=== PATIENT | male | born 1965 | race Caucasian/White ===

== ENCOUNTER 2019-06-27 16:18 | Inpatient (IN) | payer BC, OTHER ==
[2019-06-27] MEDS ORDERED: KETOROLAC TROMETHAMINE INJ/PF 30 MG/1 ML SDV IV ONE (16:26)
--- NOTE | 2019-06-27 16:28 | ER Document Report ---
ED Medical Screen (RME) - General Chief Complaint: Abdominal Pain Stated Complaint: STOMACH PAIN Time Seen by Provider: 06/27/19 16:20 Mode of Arrival: Wheelchair Information source: Patient Notes: 53-year-old male with history of diabetes thyroid issues and gastric bypass presents emergency department with complaints of severe abdominal pain. Reports his abdomen hurt a little bit yesterday. He reports started hurting again today around 1230. He was able to eat lunch. He reports his stomach feels really tight and radiates to his back. Reports he feels like he would feel much better if he vomited or belched. Patient is holding his stomach looks very uncomfortable. He reports he has a very small bowel movement after he started hurting today. He reports he feels like he is got a belly filler gas. Denies trauma. Denies fever vomiting diarrhea. Denies known COVID exposure. 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 He reports he has been going to work but wearing a mask and is in his office. I have greeted and performed a rapid initial assessment of this patient. A comprehensive ED assessment and evaluation of the patient, analysis of test results and completion of the medical decision making process will be conducted by additional ED providers.
[2019-06-27] MEDS ORDERED: ONDANSETRON HCL INJ/PF 4 MG/2 ML SDV IV ONE (16:33)
--- NOTE | 2019-06-27 16:41 | ER Document Report ---
ED GI/ - General Chief Complaint: Abdominal Pain Stated Complaint: STOMACH PAIN Time Seen by Provider: 06/27/19 16:20 Mode of Arrival: Wheelchair Information source: Patient Notes: 53-year-old male past medical history significant for diabetes, hypothyroidism, peptic ulcer disease presents to the emergency room complaining of sudden onset of severe sharp mid epigastric abdominal pain around 12:30 PM today. States he was driving home from the [employer] when the pain started. Patient states he went home and ate a hotdog and some Doritos without relief. Complains of nausea but no vomiting. No fevers. No urinary symptoms. No medications for symptoms. No ill contacts. No COVID-19 risk factors. No new meds, denies use of alcohol. TRAVEL OUTSIDE OF THE [place] IN LAST 30 DAYS: No - Related Data Allergies/Adverse Reactions: No Known Allergies Allergy (Verified 06/27/19 16:27) Home Medications: dm. thyroid Past Medical History - General Information source: Patient - Social History Smoking Status: Never Smoker Chew tobacco use (# tins/day): No Frequency of alcohol use: None Drug Abuse: None Lives with: Family Family History: DM, Hyperlipidemia, Hypertension, Thyroid Disfunction Patient has homicidal ideation: No Endocrine Medical History: Reports: Hx Diabetes Mellitus Type 2, Hx Hypothyroidism Renal/ Medical History: Reports: Other - Peptic ulcer disease Review of Systems - Review of Systems Constitutional: No symptoms reported Cardiovascular: No symptoms reported Respiratory: No symptoms reported Gastrointestinal: Abdominal pain, Nausea. denies: Vomiting Genitourinary: No symptoms reported -: Yes All other systems reviewed and negative Physical Exam - Vital signs Vitals: Temp 97.4 F 06/27/19 16:20 - General General appearance: Appears well In distress: Moderate - HEENT Head: Normocephalic, Atraumatic Eyes: Normal Pupils: PERRL - Respiratory Respiratory status: No respiratory distress Chest status: Nontender Breath sounds: Normal Chest palpation: Normal - Cardiovascular Rhythm: Regular Heart sounds: Normal auscultation Murmur: No - Abdominal Inspection: Normal Distension: No distension Bowel sounds: Normal Tenderness: Tender - Tenderness on palpation midepigastric, right upper quadrant area. Negative Flor sign.. No: Guarding, Rebound Organomegaly: No organomegaly - Back Back: Normal, Nontender. No: CVA tenderness - Neurological Neuro grossly intact: Yes Cognition: Normal Orientation: AAOx4 Sam Coma Scale Eye Opening: Spontaneous [place] Coma Scale Verbal: Oriented [place] Coma Scale Motor: Obeys Commands Sam Coma Scale Total: 15 Speech: Normal Motor strength normal: LUE, RUE, LLE, RLE Sensory: Normal - Skin Skin Temperature: Warm Skin Moisture: Dry Skin Color: Normal Course - Re-evaluation Re-evalutation: 06/27/19 17:32 Patient is resting comfortably with decreased pain. Reviewed initial labs with patient. Aware of additional diagnostic testing needed. 06/27/19 17:57 Patient with slightly elevated troponin. Aware of need for repeat troponin in 3 hours. Discussed all lab results with patient. Aware of need for CT patient is agreeable with plan of care. 06/27/19 21:02 Reviewed all test results with patient. Repeat troponin within normal limits. No acute EKG changes. Patient continues to complain of pain. Will re-medicate. Aware of need for admission. Patient is agreeable to admission. 06/27/19 21:[address] Byrnes who wants additional diagnostic testing. Patient is aware of the additional testing required. 06/27/19 22:55 Patient aware of need for admission. And that he has been accepted by the hospitalist Dr. Byrnes. Patient denies any heavy alcohol use. 06/27/19 22:58 - Vital Signs Vital signs: Temp Pulse Resp BP Pulse Ox 99.0 F 104 H 15 112/69 91 L 06/27/19 17:44 06/27/19 17:44 06/27/19 22:01 06/27/19 22:00 06/27/19 22:01 - Laboratory Result Diagrams: 06/27/19 16:38 06/27/19 16:38 Laboratory results interpreted by me: 06/27/19 06/27/19 06/27/19 16:38 16:38 16:38 Seg Neutrophils % 79.4 H Glucose 212 H POC Glucose 238 H Total Bilirubin 1.5 H Direct Bilirubin 0.8 H AST 406 H ALT 212 H Alkaline Phosphatase 127 H Amylase Lipase 36674.0 H Urine Protein Urine Glucose (UA) Urine Ketones Urine Urobilinogen Urine Ascorbic Acid 06/27/19 06/27/19 16:38 16:55 Seg Neutrophils % Glucose POC Glucose Total Bilirubin Direct Bilirubin AST ALT Alkaline Phosphatase Amylase 2214 H Lipase Urine Protein 30 H Urine Glucose (UA) >=500 H Urine Ketones TRACE H Urine Urobilinogen 4.0 H Urine Ascorbic Acid 20 H - Diagnostic Test Radiology reviewed: Reports reviewed - EKG Interpretation by Me Additional EKG results interpreted by me: 06/27/19 17:58 EKG was interpreted by ER physician Dr. Clement 06/27/19 20:35 EKG was interpreted by ER physician Dr. Clement - Consults Dr Fitz Trejo consulted: 21:30 - Would like right upper quadrant ultrasound to evaluate the common bile duct. Reason for consultation: 06/27/19 21:32 Admission, would like ultrasound right upper quadrant to assess common bile duct . Dr. Fitz Trejo consulted: 22:49 Reason for consultation: 06/27/19 22:49 Admission for acute pancreatitis reviewed ultrasound results as requested Consulted provider: will see as inpatient Discharge - Discharge Clinical Impression: Acute pancreatitis Qualifiers: Pancreatitis type: unspecified pancreatitis type Acute pancreatitis complication: unspecified Qualified Code(s): K85.90 - Acute pancreatitis without necrosis or infection, unspecified Disposition: ADMITTED INPATIENT Admitting Provider: Fitz (Hospitalist) Unit Admitted: Telemetry
[2019-06-27 16:55] LABS: ABSOLUTE LYMPHOCYTES (AUTO) 1.5 10^3/uL (0.5-4.7); ABSOLUTE MONOCYTES (AUTO) 0.3 10^3/uL (0.1-1.4); ABSOLUTE NEUT (AUTO) 7.2 10^3/uL (1.7-8.2); BASOPHILS % (AUTO) 0.3 % (0-2); EOSINOPHILS % (AUTO) 0.4 % (0-6); HEMATOCRIT 45.4 % (37.9-51.0); HEMOGLOBIN 15.9 g/dL (13.5-17.0); LYMPHOCYTES % (AUTO) 16.8 % (13-45); MEAN CORPUSCULAR HEMOGLOBIN 30.3 pg (27.0-33.4); MEAN CORPUSCULAR VOLUME 87 fl (80-97); MONOCYTES % (AUTO) 3.1 % (3-13); PLATELET COUNT 217 10^3/uL (150-450); RED BLOOD COUNT 5.24 10^6/uL (4.35-5.55); RED CELL DISTRIBUTION WIDTH 13.3 % (11.5-14.0); SEGMENTED NEUTROPHILS % (AUTO) 79.4 % (42-78); TOTAL CELLS COUNTED % (AUTO) 100 %
[2019-06-27 17:07] LABS: ALBUMIN 4.8 g/dL (3.5-5.0); ALKALINE PHOSPHATASE 127 U/L (38-126); ANION GAP 12 (5-19); ASPARTATE AMINO TRANSFERASE 406 U/L (17-59); BILIRUBIN,DIRECT 0.8 mg/dL (0.0-0.4); BILIRUBIN,TOTAL 1.5 mg/dL (0.2-1.3); BLOOD UREA NITROGEN 12 mg/dL (7-20); CALCIUM 9.9 mg/dL (8.4-10.2); CARBON DIOXIDE 24 mmol/L (22-30); CHLORIDE 102 mmol/L (98-107); GLUCOSE 212 mg/dL (75-110); POTASSIUM 3.9 mmol/L (3.6-5.0); TOTAL PROTEIN 7.7 g/dL (6.3-8.2)
[2019-06-27 17:10] LABS: APPEARANCE,URINE CLEAR; BILIRUBIN,URINE NEGATIVE (NEGATIVE); COLOR,URINE YELLOW; GLUCOSE, URINE >=500 mg/dL (NEGATIVE); KETONES,URINE TRACE mg/dL (NEGATIVE); LEUKOCYTE ESTERASE,URINE NEGATIVE (NEGATIVE); NITRITE,URINE NEGATIVE (NEGATIVE); PROTEIN,URINE 30 mg/dL (NEGATIVE); URINE SPECIFIC GRAVITY 1.011
--- NOTE | 2019-06-27 17:25 | RADIOLOGY REPORT (SQ) ---
EXAM DESCRIPTION: ACUTE ABDOMEN SERIES IMAGES COMPLETED DATE/TIME: 06/27/2019 5:06 pm REASON FOR STUDY: abd pain COMPARISON: None. NUMBER OF VIEWS: Three views. TECHNIQUE: Frontal chest, supine abdomen and upright/decubitus abdomen radiographic images acquired. LIMITATIONS: None. FINDINGS: CHEST: Lungs clear of infiltrates. FREE AIR: None. No abnormal gas collections. BOWEL GAS PATTERN: Nonobstructive pattern. No dilated loops or air fluid levels. CALCIFICATIONS: No suspicious calcifications. HARDWARE: None in the abdomen. SOFT TISSUES: No gross mass or suggestion of organomegaly. BONES: No acute fracture. No worrisome bone lesions. OTHER: No other significant finding. IMPRESSION: NO RADIOGRAPHIC EVIDENCE FOR ACUTE ABDOMINAL DISEASE. TECHNICAL DOCUMENTATION: JOB ID: [id number] 2010 [employer]- All Rights Reserved Reading location - IP/workstation name: [email or web address]
[2019-06-27] MEDS ORDERED: HYDROMORPHONE HCL INJ/PF 2 MG/ML AMPULE IV ONE ×2 (18:13→20:50)
[2019-06-27] MEDS ORDERED: RINGERS SOLUTION,LACTATED 1,000 ML IV ONE (18:34)
--- NOTE | 2019-06-27 20:19 | EKG REPORT ---
SEVERITY:- OTHERWISE NORMAL ECG - SINUS RHYTHM BORDERLINE LEFT AXIS DEVIATION : Confirmed by: Miky Sarmiento MD 27-Jun-2019 20:19:06
--- NOTE | 2019-06-27 20:45 | RADIOLOGY REPORT (SQ) ---
EXAM DESCRIPTION: CT ABDOMEN PELVIS WITH IV CONTRAST COMPLETED DATE/TME: 06/27/2019 00:00 CLINICAL HISTORY: 53 years, Male, abdominal pain COMPARISON: None. TECHNIQUE: Enhanced CT of the abdomen/pelvis was performed. Images were obtained after the uneventful administration of 100 mL of Omnipaque 350 intravenous contrast. Images stored on PACS. All CT scanners at this facility use dose modulation, iterative reconstruction, and/or weight based dosing when appropriate to reduce radiation dose to as low as reasonably achievable (ALARA). [facility]: Dose Right [facility]: CareDose [facility]: Dose Right [facility]: Teradose 4D [facility]: Knowthena LIMITATIONS: None. FINDINGS: Limited evaluation of the lower chest reveals bands of opacity about both lung bases, indicating areas of atelectasis and/or scar. Calcifications are evident about the coronary vessels. There is a small hiatal hernia. The liver is diffusely low in attenuation relative to the spleen. No focal liver lesions are appreciated. Assessment of the spleen reveals a wedge-shaped area of hypodensity about its anterior aspect on image 27 of series 3. Remainder of the spleen appears normal. Mild inflammatory stranding surrounds the pancreatic parenchyma, especially the pancreatic tail and pancreatic head. Otherwise, the pancreas appears to enhance normally. Gallbladder is distended, containing heterogeneously dense material internally, suggestive of sludge. No significant gallbladder wall thickening or pericholecystic inflammation. Both adrenal glands appear normal. A 2 mm calculus is noted about the lower pole of the right kidney. Both kidneys otherwise enhance symmetrically. No hydronephrosis or hydroureter. The urinary bladder is well distended and shows no suspicious finding. Scattered colonic diverticula are evident. No adjacent inflammation. Appendix is normal. No evidence of bowel obstruction. Postsurgical changes are suspected about the stomach. Vascular structures appeared opacify with contrast normally. Only minimal calcifications are noted about the abdominal aorta and proximal iliac vessels. No lymphadenopathy or drainable fluid collections are appreciated. Bone windows show no destructive osseous lesions. IMPRESSION: Findings suggest acute, uncomplicated pancreatitis. Recommend confirmation with serum lipase levels. Wedge-shaped area of hypodensity about the anterior aspect of the spleen. While this could be related to the phase of contrast administration, a splenic infarcts could technically have this appearance. Heterogenous material within the gallbladder lumen, suspicious for sludge. Suspect hepatic steatosis. Nonobstructive right nephrolithiasis. TECHNICAL DOCUMENTATION: Quality ID # 436: Final reports with documentation of one or more dose reduction techniques (e.g., Automated exposure control, adjustment of the mA and/or kV according to patient size, use of iterative reconstruction technique) copyright 2011 [employer]- All Rights Reserved
--- NOTE | 2019-06-27 22:22 | RADIOLOGY REPORT (SQ) ---
EXAM DESCRIPTION: US ABDOMEN LIMITED COMPLETED DATE/TME: 06/27/2019 21:28 CLINICAL HISTORY: 53 years, Male, ruq pain, pancreatitis, assess common bile duct COMPARISON: None. TECHNIQUE: LIMITATIONS: None. FINDINGS: The gallbladder is filled with sludge. No gallstones. The nuclear medicine pet ct technologist reported a negative sonographic Flor sign. No evidence of biliary tree dilatation. The common bile duct measures 4.3 mm. The liver is hyperechogenic, compatible with fatty infiltration. The right kidney is unremarkable. The pancreas was obscured by bowel gas. IMPRESSION: The gallbladder is filled with sludge. Fatty liver. copyright 2010 [employer]- All Rights Reserved
[2019-06-27] MEDS ORDERED: MORPHINE SULFATE 10 MG/ML INJ IV PRN (22:48)
[2019-06-27] MEDS ORDERED: ACETAMINOPHEN 325 MG TABLET PO PRN (22:48)
[2019-06-27] MEDS ORDERED: HYDRALAZINE HCL INJ/PF 20 MG/1 ML SDV IV PRN (22:48)
[2019-06-27] MEDS ORDERED: ONDANSETRON HCL INJ/PF 4 MG/2 ML SDV IV PRN (22:49)
[2019-06-27] MEDS ORDERED: IPRATROPIUM/ALBUTEROL 0.5-2.5 MG/3 ML AMPUL NEB PRN (22:49)
[2019-06-27] MEDS: NORMAL SALINE 1000 ML 1,000 ML IV PRN (23:34)
[2019-06-28] MEDS: NORMAL SALINE 1000 ML 1,000 ML IV PRN ×2 (03:43→08:20)
--- NOTE | 2019-06-28 03:51 | PDOC H&P ---
History of Present Illness Admission Date/PCP: 06/27/19 22:53 FLOR MATHIAS MD Patient complains of: Abdominal pain History of Present Illness: CIPRIANO ADAM is a 53 year old male with a past medical history of hypothyroidism, peptic ulcer disease, hypertension and diabetes. He presents with 24 hours of epigastric pain radiating to the back associated with nausea without vomiting. He denies fever chills shortness of breath he admits to recent initiation of Ozempic which is known to have a frequent adverse reaction of pancreatitis. In the emergency department he is found to have mildly elevated bilirubin but a markedly elevated lipase of 45,000, ultrasound is negative for stone or ductal dilatation. He received symptomatic management and referred to the hospitalist for admission. He denies previous episode, alcohol or viral prodrome. Past Medical History Endocrine Medical History: Reports: Diabetes Mellitus Type 2, Hypothyroidism Renal/ Medical History: Reports: Other - Peptic ulcer disease Psychiatric Medical History: Denies: Depression Past Surgical History Past Surgical History: Reports: Gastric Bypass Surgery, Orthopedic Surgery - rt knee, lt shoulder Social History Information Source: Patient Lives with: Family Smoking Status: Never Smoker Electronic Cigarette use?: No Frequency of Alcohol Use: None Hx Recreational Drug Use: No Drugs: None Hx Prescription Drug Abuse: No - Advance Directive Resuscitation Status: Full Code Family History Family History: DM, Hyperlipidemia, Hypertension, Thyroid Disfunction Parental Family History Reviewed: No Children Family History Reviewed: No Sibling(s) Family History Reviewed.: No Medication/Allergy Home Medications: Levothyroxine Sodium [Synthroid 0.112 mg Tablet] 2 tab PO DAILY 06/28/19 Metformin HCl 2 tab PO BID 06/28/19 Omeprazole 1 tab PO QAM 06/28/19 Semaglutide [Ozempic] 0.5 mg SUBCUT ASDIR PRN 06/28/19 Allergies/Adverse Reactions: No Known Allergies Allergy (Verified 06/27/19 16:27) Review of Systems Constitutional: ABSENT: chills, fever(s), headache(s), weight gain, weight loss Eyes: ABSENT: visual disturbances Ears: ABSENT: hearing changes Cardiovascular: ABSENT: chest pain, dyspnea on exertion, edema, orthropnea, palpitations Respiratory: ABSENT: cough, hemoptysis Gastrointestinal: ABSENT: abdominal pain, constipation, diarrhea, hematemesis, hematochezia, nausea, vomiting Genitourinary: ABSENT: dysuria, hematuria Musculoskeletal: ABSENT: joint swelling Integumentary: ABSENT: rash, wounds Neurological: ABSENT: abnormal gait, abnormal speech, confusion, dizziness, focal weakness, syncope Psychiatric: ABSENT: anxiety, depression, homidical ideation, suicidal ideation Endocrine: ABSENT: cold intolerance, heat intolerance, polydipsia, polyuria Hematologic/Lymphatic: ABSENT: easy bleeding, easy bruising Physical Exam Vital Signs: Temp Pulse Resp BP Pulse Ox 98.3 F 91 18 106/66 94 06/28/19 00:03 06/28/19 02:00 06/28/19 00:03 06/28/19 00:03 06/28/19 00:03 Intake & Output 06/26/19 06/27/19 06/28/19 11:59 11:59 11:59 Intake Total 1999 Balance 1999 Weight 111.3 kg General appearance: PRESENT: mild distress, well-developed, well-nourished Head exam: PRESENT: atraumatic, normocephalic Eye exam: PRESENT: conjunctiva pink, EOMI, PERRLA. ABSENT: scleral icterus Ear exam: PRESENT: normal external ear exam Mouth exam: PRESENT: moist, tongue midline Neck exam: ABSENT: carotid bruit, JVD, lymphadenopathy, thyromegaly Respiratory exam: PRESENT: clear to auscultation andrés. ABSENT: rales, rhonchi, wheezes Cardiovascular exam: PRESENT: RRR. ABSENT: diastolic murmur, rubs, systolic murmur Pulses: PRESENT: normal dorsalis pedis pul Vascular exam: PRESENT: normal capillary refill GI/Abdominal exam: PRESENT: hyperactive bowel sounds, normal bowel sounds, soft, tenderness - Epigastric. ABSENT: distended, guarding, mass, organolmegaly, rebound Rectal exam: PRESENT: deferred Extremities exam: PRESENT: full ROM. ABSENT: calf tenderness, clubbing, pedal edema Neurological exam: PRESENT: alert, awake, oriented to person, oriented to place, oriented to time, oriented to situation, CN II-XII grossly intact. ABSENT: motor sensory deficit Psychiatric exam: PRESENT: appropriate affect, normal mood. ABSENT: homicidal ideation, suicidal ideation Skin exam: PRESENT: dry, intact, warm. ABSENT: cyanosis, rash Results Laboratory Results: 06/27/19 16:38 06/27/19 16:38 06/27/19 06/27/19 06/27/19 16:38 16:38 16:38 WBC 9.0 RBC 5.24 Hgb 15.9 Hct 45.4 MCV 87 MCH 30.3 MCHC 35.0 RDW 13.3 Plt Count 217 Seg Neutrophils % 79.4 H Sodium 137.6 Potassium 3.9 Chloride 102 Carbon Dioxide 24 Anion Gap 12 BUN 12 Creatinine 0.64 Est GFR ( Amer) > 60 Glucose 212 H Calcium 9.9 Total Bilirubin 1.5 H AST 406 H Alkaline Phosphatase 127 H Total Protein 7.7 Albumin 4.8 Amylase 2214 H Lipase 25666.0 H Urine Color Urine Appearance Urine pH Ur Specific [place] Urine Protein Urine Glucose (UA) Urine Ketones Urine Blood Urine Nitrite Ur Leukocyte Esterase Urine WBC (Auto) Urine RBC (Auto) 06/27/19 16:55 WBC RBC Hgb Hct MCV MCH MCHC RDW Plt Count Seg Neutrophils % Sodium Potassium Chloride Carbon Dioxide Anion Gap BUN Creatinine Est GFR ( Amer) Glucose Calcium Total Bilirubin AST Alkaline Phosphatase Total Protein Albumin Amylase Lipase Urine Color YELLOW Urine Appearance CLEAR Urine pH 6.0 Ur Specific [place] 1.011 Urine Protein 30 H Urine Glucose (UA) >=500 H Urine Ketones TRACE H Urine Blood NEGATIVE Urine Nitrite NEGATIVE Ur Leukocyte Esterase NEGATIVE Urine WBC (Auto) 0 Urine RBC (Auto) 1 06/27/19 06/27/19 06/27/19 16:38 16:38 16:38 Creatine Kinase 110 CK-MB (CK-2) 0.88 Troponin I 0.014 06/27/19 20:39 Creatine Kinase CK-MB (CK-2) Troponin I < 0.012 Impressions: Abdomen/Pelvis CT 06/27/19 00:00 IMPRESSION: Findings suggest acute, uncomplicated pancreatitis. Recommend confirmation with serum lipase levels. Wedge-shaped area of hypodensity about the anterior aspect of the spleen. While this could be related to the phase of contrast administration, a splenic infarcts could technically have this appearance. Heterogenous material within the gallbladder lumen, suspicious for sludge. Suspect hepatic steatosis. Nonobstructive right nephrolithiasis. TECHNICAL DOCUMENTATION: Quality ID # 436: Final reports with documentation of one or more dose reduction techniques (e.g., Automated exposure control, adjustment of the mA and/or kV according to patient size, use of iterative reconstruction technique) copyright 2011 [employer]- All Rights Reserved Acute Abdomen Series 06/27/19 16:26 IMPRESSION: NO RADIOGRAPHIC EVIDENCE FOR ACUTE ABDOMINAL DISEASE. Abdomen Ultrasound 06/27/19 21:28 IMPRESSION: The gallbladder is filled with sludge. Fatty liver. copyright 2010 [employer]- All Rights Reserved Assessment and Plan - Diagnosis (1) Acute pancreatitis Qualifiers: Pancreatitis type: unspecified pancreatitis type Acute pancreatitis complication: unspecified Qualified Code(s): K85.90 - Acute pancreatitis without necrosis or infection, unspecified Is this a current diagnosis for this admission?: Yes Plan: Likely secondary to Ozempic, discontinued, Bowel rest, hydration, symptomatic management, follow-up chemistry. Trial p.o. clear liquid diet with no longer requesting narcotic analgesia. Advance diet as tolerated. (2) Abdominal pain Is this a current diagnosis for this admission?: Yes Plan: Secondary #1, NSAIDs as needed (3) Diabetes Is this a current diagnosis for this admission?: Yes Plan: Ozempic discontinued, Humalog sliding scale ordered. - Time Time Spent with patient: 25-34 minutes
[2019-06-28 05:49] LABS: HEMATOCRIT 37.8 % (37.9-51.0); MEAN CORPUSCULAR HEMOGLOBIN 30.7 pg (27.0-33.4); MEAN CORPUSCULAR HGB CONC 35.5 g/dL (32.0-36.0); MEAN CORPUSCULAR VOLUME 87 fl (80-97); PLATELET COUNT 171 10^3/uL (150-450); RED BLOOD COUNT 4.36 10^6/uL (4.35-5.55); RED CELL DISTRIBUTION WIDTH 13.2 % (11.5-14.0); WHITE BLOOD COUNT 12.7 10^3/uL (4.0-10.5)
[2019-06-28 05:54] LABS: HEMOGLOBIN 13.4 g/dL (13.5-17.0)
[2019-06-28] MEDS: HEPARIN SOD (PORCINE) 5,000 UNIT/ML 1 ML VIAL SUBCUT SCH ×3 (05:55→21:00)
[2019-06-28 06:02] LABS: ALBUMIN 3.5 g/dL (3.5-5.0); ALKALINE PHOSPHATASE 105 U/L (38-126); ANION GAP 9 (5-19); ASPARTATE AMINO TRANSFERASE 573 U/L (17-59); BILIRUBIN,DIRECT 3.3 mg/dL (0.0-0.4); BLOOD UREA NITROGEN 15 mg/dL (7-20); CALCIUM 8.4 mg/dL (8.4-10.2); CARBON DIOXIDE 25 mmol/L (22-30); CHLORIDE 102 mmol/L (98-107); GLUCOSE 238 mg/dL (75-110); POTASSIUM 4.2 mmol/L (3.6-5.0); TOTAL PROTEIN 6.1 g/dL (6.3-8.2)
[2019-06-28 06:08] LABS: ABSOLUTE LYMPHOCYTES# (MANUAL) 0.4 10^3/uL (0.5-4.7); ABSOLUTE MONOCYTES # (MANUAL) 0.6 10^3/uL (0.1-1.4); BAND NEUTROPHILS % (MANUAL) 6 % (3-5); BASOPHILS % (MANUAL) 0 % (0-2); EOSINOPHILS % (MANUAL) 0 % (0-6); LYMPHOCYTES % (MANUAL) 3 % (13-45); MONOCYTES % (MANUAL) 5 % (3-13); SEGMENTED NEUTROPHILS % (MAN) 86 % (42-78); TOTAL CELLS COUNTED 100
[2019-06-28 06:09] LABS: PLATELET COMMENT ADEQUATE; RBC MORPHOLOGY COMMENT NORMO-CYTIC/CHROMIC
[2019-06-28 06:15] LABS: BILIRUBIN,TOTAL 4.9 mg/dL (0.2-1.3)
--- NOTE | 2019-06-28 06:18 | EKG REPORT ---
SEVERITY:- OTHERWISE NORMAL ECG - SINUS TACHYCARDIA BORDERLINE LEFT AXIS DEVIATION : Confirmed by: Miky Sarmiento MD 28-Jun-2019 06:17:56
[2019-06-28] MEDS ORDERED: ONDANSETRON HCL INJ/PF 4 MG/2 ML SDV IV PRN (07:30)
[2019-06-28] MEDS: KETOROLAC TROMETHAMINE INJ/PF 30 MG/1 ML SDV IV PRN ×2 (07:57→22:02)
[2019-06-28] MEDS ORDERED: RINGERS SOLUTION,LACTATED 1,000 ML IV PRN (08:51)
[2019-06-28] MEDS ORDERED: DEXTROSE 50%-WATER 25 GM/50 ML DISP.SYRIN IV PRN ×2 (08:53)
[2019-06-28] MEDS ORDERED: DEXTROSE 40% GEL 15 GM TUBE PO PRN ×2 (08:53)
[2019-06-28] MEDS ORDERED: GLUCAGON,HUMAN RECOMB 1 MG INJ IM PRN (08:53)
[2019-06-28] MEDS: PANTOPRAZOLE SODIUM 40 MG VIAL IV SCH (09:19)
[2019-06-28] MEDS ORDERED: FAMOTIDINE INJ/PF 20 MG/2 ML SDV IV SCH (10:00)
[2019-06-28] MEDS: LEVOTHYROXINE SODIUM 0.112 MG TABLET PO SCH (10:04)
[2019-06-28] MEDS: DEXTROSE 5%-LACTATED RINGERS 1,000 ML IV PRN ×3 (11:47→22:03)
[2019-06-28] MEDS: INSULIN LISPRO 100 UNIT/ML 3 ML VIAL SUBCUT SCH ×2 (11:53→17:53)
--- NOTE | 2019-06-28 16:37 | PDOC PROGRESS REPORT ---
Subjective Progress Note for:: 06/28/19 Subjective:: Patient feels better today. Still having abdominal pain. Denies any fever or chills. Denies any problems with bowel movements. Last bowel movement was yesterday. Reason For Visit: ACUTE PANCREATITIS Physical Exam Vital Signs: Temp Pulse Resp BP Pulse Ox 98.8 F 93 14 116/53 L 95 06/28/19 08:21 06/28/19 10:25 06/28/19 10:25 06/28/19 08:21 06/28/19 08:21 Intake & Output 06/27/19 06/28/19 06/29/19 06:59 06:59 06:59 Intake Total 1999 185 Balance 1999 1857 Weight 111.3 kg General appearance: PRESENT: no acute distress, cooperative Neck exam: ABSENT: JVD Respiratory exam: PRESENT: clear to auscultation andrés, unlabored. ABSENT: tachypnea, wheezes Cardiovascular exam: PRESENT: RRR, +S1, +S2. ABSENT: tachycardia GI/Abdominal exam: PRESENT: soft. ABSENT: rebound, rigid, tenderness Neurological exam: PRESENT: alert, awake, oriented to person, oriented to place, oriented to time Results Laboratory Results: 06/28/19 04:58 06/28/19 04:58 06/27/19 06/27/19 06/27/19 16:38 16:38 16:38 WBC 9.0 RBC 5.24 Hgb 15.9 Hct 45.4 MCV 87 MCH 30.3 MCHC 35.0 RDW 13.3 Plt Count 217 Seg Neutrophils % 79.4 H Sodium 137.6 Potassium 3.9 Chloride 102 Carbon Dioxide 24 Anion Gap 12 BUN 12 Creatinine 0.64 Est GFR ( Amer) > 60 Glucose 212 H Calcium 9.9 Total Bilirubin 1.5 H AST 406 H Alkaline Phosphatase 127 H Total Protein 7.7 Albumin 4.8 Amylase 2214 H Lipase 47663.0 H Urine Color Urine Appearance Urine pH Ur Specific [place] Urine Protein Urine Glucose (UA) Urine Ketones Urine Blood Urine Nitrite Ur Leukocyte Esterase Urine WBC (Auto) Urine RBC (Auto) 06/27/19 06/28/19 06/28/19 16:55 04:58 04:58 WBC 12.7 H RBC 4.36 Hgb 13.4 L D Hct 37.8 L MCV 87 MCH 30.7 MCHC 35.5 RDW 13.2 Plt Count 171 Seg Neutrophils % Not Reportable Sodium 136.3 L Potassium 4.2 Chloride 102 Carbon Dioxide 25 Anion Gap 9 BUN 15 Creatinine 0.77 Est GFR ( Amer) > 60 Glucose 238 H Calcium 8.4 Total Bilirubin 4.9 H D AST 573 H Alkaline Phosphatase 105 Total Protein 6.1 L Albumin 3.5 Amylase Lipase 37105.9 H Urine Color YELLOW Urine Appearance CLEAR Urine pH 6.0 Ur Specific [place] 1.011 Urine Protein 30 H Urine Glucose (UA) >=500 H Urine Ketones TRACE H Urine Blood NEGATIVE Urine Nitrite NEGATIVE Ur Leukocyte Esterase NEGATIVE Urine WBC (Auto) 0 Urine RBC (Auto) 1 06/27/19 06/27/19 06/27/19 16:38 16:38 16:38 Creatine Kinase 110 CK-MB (CK-2) 0.88 Troponin I 0.014 06/27/19 20:39 Creatine Kinase CK-MB (CK-2) Troponin I < 0.012 Impressions: Abdomen/Pelvis CT 06/27/19 00:00 IMPRESSION: Findings suggest acute, uncomplicated pancreatitis. Recommend confirmation with serum lipase levels. Wedge-shaped area of hypodensity about the anterior aspect of the spleen. While this could be related to the phase of contrast administration, a splenic infarcts could technically have this appearance. Heterogenous material within the gallbladder lumen, suspicious for sludge. Suspect hepatic steatosis. Nonobstructive right nephrolithiasis. TECHNICAL DOCUMENTATION: Quality ID # 436: Final reports with documentation of one or more dose reduction techniques (e.g., Automated exposure control, adjustment of the mA and/or kV according to patient size, use of iterative reconstruction technique) copyright 2011 [employer]- All Rights Reserved Acute Abdomen Series 06/27/19 16:26 IMPRESSION: NO RADIOGRAPHIC EVIDENCE FOR ACUTE ABDOMINAL DISEASE. Abdomen Ultrasound 06/27/19 21:28 IMPRESSION: The gallbladder is filled with sludge. Fatty liver. copyright 2011 [employer]- All Rights Reserved Assessment and Plan - Diagnosis (1) Acute pancreatitis Qualifiers: Pancreatitis type: drug induced Acute pancreatitis complication: no in fection or necrosis Qualified Code(s): K85.30 - Drug induced acute pancre atitis without necrosis or infection Is this a current diagnosis for this admission?: Yes Plan: Likely secondary to Ozempic which will be discontinued. Lipase of 45,000 on admission. Patient looks to be doing better. Continue bowel rest for today and hopefully we can attempt starting on liquid diet tomorrow. Abdominal ultrasound showing no evidence of biliary tract obstruction Place on D5 lactated Ringer's at 200 cc/h. Morphine and Toradol IV as needed, antiemetics. GI prophylaxis. (2) Hepatocellular injury Is this a current diagnosis for this admission?: Yes Plan: Significantly elevated transaminases and bilirubin. No biliary tract obstruction on ultrasound but abdominal ultrasound does show evidence of fatty liver disease. Will check Tylenol level and hepatitis viral serology. Trend liver enzymes. (3) Diabetes Is this a current diagnosis for this admission?: Yes Plan: Ozempic discontinued, Humalog sliding scale ordered. - Time Time Spent with patient: Less than 15 minutes
[2019-06-29] MEDS: INSULIN LISPRO 100 UNIT/ML 3 ML VIAL SUBCUT SCH ×4 (01:28→19:03)
[2019-06-29] MEDS: HEPARIN SOD (PORCINE) 5,000 UNIT/ML 1 ML VIAL SUBCUT SCH ×3 (06:33→21:16)
[2019-06-29] MEDS: LEVOTHYROXINE SODIUM 0.112 MG TABLET PO SCH (06:35)
[2019-06-29 06:39] LABS: ALKALINE PHOSPHATASE 104 U/L (38-126); ANION GAP 7 (5-19); ASPARTATE AMINO TRANSFERASE 174 U/L (17-59); BILIRUBIN,DIRECT 3.8 mg/dL (0.0-0.4); BLOOD UREA NITROGEN 13 mg/dL (7-20); CALCIUM 8.1 mg/dL (8.4-10.2); CARBON DIOXIDE 24 mmol/L (22-30); CHLORIDE 105 mmol/L (98-107); GLUCOSE 190 mg/dL (75-110); POTASSIUM 3.2 mmol/L (3.6-5.0); TOTAL PROTEIN 5.3 g/dL (6.3-8.2)
[2019-06-29] MEDS: PANTOPRAZOLE SODIUM 40 MG VIAL IV SCH (09:35)
--- NOTE | 2019-06-29 14:52 | PDOC PROGRESS REPORT ---
Subjective Progress Note for:: 06/29/19 Subjective:: Patient says he feels better, abdominal pain improved Reason For Visit: ACUTE PANCREATITIS Physical Exam Vital Signs: Temp Pulse Resp BP Pulse Ox 99.0 F 99 18 132/72 H 96 06/29/19 08:01 06/29/19 14:09 06/29/19 14:09 06/29/19 08:01 06/29/19 14:09 Intake & Output 06/28/19 06/29/19 06/30/19 06:59 06:59 06:59 Intake Total 1999 3711 Output Total 850 Balance 1999 286 Weight 111.3 kg 112.2 kg General appearance: PRESENT: no acute distress, well-developed, well-nourished Head exam: PRESENT: atraumatic, normocephalic Eye exam: PRESENT: conjunctiva pink, EOMI, PERRLA. ABSENT: scleral icterus Ear exam: PRESENT: normal external ear exam Mouth exam: PRESENT: moist, tongue midline Neck exam: ABSENT: carotid bruit, JVD, lymphadenopathy, thyromegaly Respiratory exam: PRESENT: clear to auscultation andrés. ABSENT: rales, rhonchi, wheezes Cardiovascular exam: PRESENT: RRR, +S1, +S2. ABSENT: diastolic murmur, rubs, systolic murmur Pulses: PRESENT: normal dorsalis pedis pul Vascular exam: PRESENT: normal capillary refill GI/Abdominal exam: PRESENT: normal bowel sounds, soft. ABSENT: distended, guarding, mass, organolmegaly, rebound, tenderness Rectal exam: PRESENT: deferred Extremities exam: PRESENT: full ROM. ABSENT: calf tenderness, clubbing, pedal edema Neurological exam: PRESENT: alert, awake, oriented to person, oriented to place, oriented to time, oriented to situation, CN II-XII grossly intact. ABSENT: motor sensory deficit Psychiatric exam: PRESENT: appropriate affect, normal mood. ABSENT: homicidal ideation, suicidal ideation Skin exam: PRESENT: dry, intact, warm. ABSENT: cyanosis, rash Results Laboratory Results: 06/28/19 04:58 06/29/19 05:28 06/29/19 06/29/19 05:28 05:28 Sodium 135.9 L Potassium 3.2 L Chloride 105 Carbon Dioxide 24 Anion Gap 7 BUN 13 Creatinine 0.60 Est GFR ( Amer) > 60 Glucose 190 H Calcium 8.1 L Total Bilirubin 5.0 H AST 174 H Alkaline Phosphatase 104 Total Protein 5.3 L Albumin 3.0 L Lipase 2050.7 H 06/27/19 06/27/19 06/27/19 16:38 16:38 16:38 Creatine Kinase 110 CK-MB (CK-2) 0.88 Troponin I 0.014 06/27/19 20:39 Creatine Kinase CK-MB (CK-2) Troponin I < 0.012 Impressions: Abdomen/Pelvis CT 06/27/19 00:00 IMPRESSION: Findings suggest acute, uncomplicated pancreatitis. Recommend confirmation with serum lipase levels. Wedge-shaped area of hypodensity about the anterior aspect of the spleen. While this could be related to the phase of contrast administration, a splenic infarcts could technically have this appearance. Heterogenous material within the gallbladder lumen, suspicious for sludge. Suspect hepatic steatosis. Nonobstructive right nephrolithiasis. TECHNICAL DOCUMENTATION: Quality ID # 436: Final reports with documentation of one or more dose reduction techniques (e.g., Automated exposure control, adjustment of the mA and/or kV according to patient size, use of iterative reconstruction technique) copyright 2011 [employer]- All Rights Reserved Acute Abdomen Series 06/27/19 16:26 IMPRESSION: NO RADIOGRAPHIC EVIDENCE FOR ACUTE ABDOMINAL DISEASE. Abdomen Ultrasound 06/27/19 21:28 IMPRESSION: The gallbladder is filled with sludge. Fatty liver. copyright 2011 [employer]- All Rights Reserved Assessment and Plan - Diagnosis (1) Abdominal pain Is this a current diagnosis for this admission?: Yes (2) Acute pancreatitis Qualifiers: Pancreatitis type: drug induced Acute pancreatitis complication: no infection or necrosis Qualified Code(s): K85.30 - Drug induced acute pancreatitis without necrosis or infection Is this a current diagnosis for this admission?: Yes Plan: Likely secondary to Ozempic which will be discontinued. Lipase of 45,000 on admission. Patient looks to be doing better. Continue bowel rest for today and hopefully we can attempt starting on liquid diet tomorrow. Abdominal ultrasound showing no evidence of biliary tract obstruction Place on D5 lactated Ringer's at 200 cc/h. Morphine and Toradol IV as needed, antiemetics. GI prophylaxis. 06/28 Lipase down to 2000. Will advance to full liqid and reevaluate in am (3) Diabetes Is this a current diagnosis for this admission?: Yes Plan: Ozempic discontinued, Humalog sliding scale and monitor (5) LFTs abnormal Is this a current diagnosis for this admission?: Yes Plan: Likely iatrogenic. Will trend carefully. Further consultations depending on clinical course - Time Time Spent with patient: 25-34 minutes Anticipated discharge: Home - Inpatient Certification Based on my medical assessment, after consideration of the patient's comorbidities, presenting symptoms, or acuity I expect that the services needed warrant INPATIENT care.: Yes Medical Necessity: Need Close Monitoring Due to Risk of Patient Decompensation, Risk of Complication if Not Cared For in Hospital
[2019-06-29] MEDS: POTASSIUM CHLORIDE 10 MEQ TABLET.ER PO SCH ×2 (17:25→21:14)
[2019-06-29] MEDS: DEXTROSE 5%-LACTATED RINGERS 1,000 ML IV PRN ×2 (17:29→21:17)
[2019-06-30] MEDS: INSULIN LISPRO 100 UNIT/ML 3 ML VIAL SUBCUT SCH ×3 (02:15→12:02)
[2019-06-30 05:27] LABS: ABSOLUTE EOSINOPHILS # (AUTO) 0.1 10^3/uL (0.0-0.6); ABSOLUTE LYMPHOCYTES (AUTO) 0.4 10^3/uL (0.5-4.7); ABSOLUTE MONOCYTES (AUTO) 0.3 10^3/uL (0.1-1.4); ABSOLUTE NEUT (AUTO) 4.2 10^3/uL (1.7-8.2); BASOPHILS % (AUTO) 0.3 % (0-2); EOSINOPHILS % (AUTO) 2.7 % (0-6); HEMATOCRIT 35.2 % (37.9-51.0); HEMOGLOBIN 12.5 g/dL (13.5-17.0); LYMPHOCYTES % (AUTO) 8.4 % (13-45); MEAN CORPUSCULAR HEMOGLOBIN 30.7 pg (27.0-33.4); MEAN CORPUSCULAR HGB CONC 35.6 g/dL (32.0-36.0); MEAN CORPUSCULAR VOLUME 86 fl (80-97); MONOCYTES % (AUTO) 6.3 % (3-13); PLATELET COUNT 127 10^3/uL (150-450); RED BLOOD COUNT 4.08 10^6/uL (4.35-5.55); RED CELL DISTRIBUTION WIDTH 13.3 % (11.5-14.0); SEGMENTED NEUTROPHILS % (AUTO) 82.3 % (42-78); TOTAL CELLS COUNTED % (AUTO) 100 %; WHITE BLOOD COUNT 5.1 10^3/uL (4.0-10.5)
[2019-06-30 05:37] LABS: HEPATITS B SURFACE ANTIGEN Negative (Negative)
[2019-06-30 05:52] LABS: ALBUMIN 3.1 g/dL (3.5-5.0); ALKALINE PHOSPHATASE 139 U/L (38-126); ASPARTATE AMINO TRANSFERASE 87 U/L (17-59); BILIRUBIN,DIRECT 2.6 mg/dL (0.0-0.4); BILIRUBIN,TOTAL 3.8 mg/dL (0.2-1.3); BLOOD UREA NITROGEN 4 mg/dL (7-20); CALCIUM 8.7 mg/dL (8.4-10.2); CARBON DIOXIDE 23 mmol/L (22-30); CHLORIDE 110 mmol/L (98-107); GLUCOSE 190 mg/dL (75-110); TOTAL PROTEIN 5.6 g/dL (6.3-8.2)
[2019-06-30 06:00] LABS: ANION GAP 4 (5-19); POTASSIUM 4.2 mmol/L (3.6-5.0)
[2019-06-30] MEDS: HEPARIN SOD (PORCINE) 5,000 UNIT/ML 1 ML VIAL SUBCUT SCH ×2 (06:50→14:51)
[2019-06-30] MEDS: LEVOTHYROXINE SODIUM 0.112 MG TABLET PO SCH (06:51)
[2019-06-30] MEDS: DEXTROSE 5%-LACTATED RINGERS 1,000 ML IV PRN (06:53)
[2019-06-30 07:14] LABS: HEPATITIS B CORE AB TOT Negative (Negative); HEPATITIS C VIRUS ANTIBODY <0.1 s/co ratio (0.0-0.9)
[2019-06-30] MEDS: PANTOPRAZOLE SODIUM 40 MG VIAL IV SCH (09:57)
--- NOTE | 2019-06-30 15:42 | PDOC DISCHARGE SUMMARY ---
Impression - Admit/DC Date/PCP Admission Date/Primary Care Provider: 06/27/19 22:53 FLOR MATHIAS MD Discharge Date: 06/30/19 - Discharge Diagnosis (1) Abdominal pain Is this a current diagnosis for this admission?: Yes (2) Acute pancreatitis Is this a current diagnosis for this admission?: Yes (3) Diabetes Is this a current diagnosis for this admission?: Yes (4) Hypokalemia Is this a current diagnosis for this admission?: Yes (5) LFTs abnormal Is this a current diagnosis for this admission?: Yes - Additional Information Resuscitation Status: Full Code Discharge Diet: As Tolerated Discharge Activity: Activity As Tolerated Referrals: FLOR MATHIAS MD [Primary Care Provider] - Follow up as needed (LEFT A MESSAGE FOR PROVIDER'S OFFICE TO CALL PATIENT WITH A HOSPITAL FOLLOW UP APPT. DATE/TIME. Please obtain LFT, Lipase levels) Home Medications: Cholecalciferol (Vitamin D3) [Vitamin D3 1000 Unit Tablet] 5,000 unit PO DAILY 06/28/19 Ferrous Gluconate 324 mg PO DAILY 06/28/19 Levothyroxine Sodium [Synthroid 0.112 mg Tablet] 2 tab PO DAILY 06/28/19 Metformin HCl 2 tab PO BID 06/28/19 Omeprazole 1 tab PO QAM 06/28/19 History of Present Illiness History of Present Illness: CIPRIANO ADAM is a 53 year old male Patient presented to the emergency room with abdominal pain. He was found to have an elevated lipase of 45,000 as well as liver function tests. This was thought to be iatrogenic secondary to Ozempic. Please see admitting history and physical for full details Hospital Course Hospital Course: Patient was admitted for further evaluation. He was started on bowel rest with n.p.o. regimen. He received IV fluid. He was monitored closely. His LFTs and lipase gradually improved with his lipase down to the 500s. LFTs are still slightly elevated however they have been improving and this can be followed as outpatient. Patient has been able to tolerate his diet. He was placed on sliding scale insulin while in hospital and he will need further evaluation for his medications and adjustments going forward as outpatient. Physical Exam Vital Signs: Temp Pulse Resp BP Pulse Ox 97.6 F 90 16 154/87 H 99 06/30/19 11:36 06/30/19 12:26 06/30/19 12:26 06/30/19 11:36 06/30/19 12:26 Intake & Output 06/29/19 06/30/19 07/01/19 06:59 06:59 06:59 Intake Total 4711 2496 1003 Output Total 850 3025 850 Balance 3861 529 153 Weight 112.2 kg 112.2 kg General appearance: PRESENT: no acute distress, well-developed, well-nourished Head exam: PRESENT: atraumatic, normocephalic Eye exam: PRESENT: conjunctiva pink, EOMI, PERRLA. ABSENT: scleral icterus Ear exam: PRESENT: normal external ear exam Mouth exam: PRESENT: moist, tongue midline Neck exam: ABSENT: carotid bruit, JVD, lymphadenopathy, thyromegaly Respiratory exam: PRESENT: clear to auscultation andrés, unlabored. ABSENT: rales, rhonchi, wheezes Cardiovascular exam: PRESENT: RRR, +S1, +S2. ABSENT: diastolic murmur, rubs, systolic murmur Vascular exam: PRESENT: normal capillary refill GI/Abdominal exam: PRESENT: normal bowel sounds, soft. ABSENT: distended, guarding, mass, organolmegaly, rebound, tenderness Rectal exam: PRESENT: deferred Extremities exam: PRESENT: full ROM. ABSENT: calf tenderness, clubbing, pedal edema Neurological exam: PRESENT: alert, awake, oriented to person, oriented to place, oriented to time, oriented to situation, CN II-XII grossly intact. ABSENT: m otor sensory deficit Psychiatric exam: PRESENT: appropriate affect, normal mood. ABSENT: homicidal ideation, suicidal ideation Skin exam: PRESENT: dry, intact, warm. ABSENT: cyanosis, rash Results Laboratory Results: WBC 5.1 10^3/uL (4.0-10.5) 06/30/19 04:45 RBC 4.08 10^6/uL (4.35-5.55) L 06/30/19 04:45 Hgb 12.5 g/dL (13.5-17.0) L 06/30/19 04:45 Hct 35.2 % (37.9-51.0) L 06/30/19 04:45 MCV 86 fl (80-97) 06/30/19 04:45 MCH 30.7 pg (27.0-33.4) 06/30/19 04:45 MCHC 35.6 g/dL (32.0-36.0) 06/30/19 04:45 RDW 13.3 % (11.5-14.0) 06/30/19 04:45 Plt Count 127 10^3/uL (150-450) L 06/30/19 04:45 Lymph % (Auto) 8.4 % (13-45) L 06/30/19 04:45 [place] % (Auto) 6.3 % (3-13) 06/30/19 04:45 Eos % (Auto) 2.7 % (0-6) 06/30/19 04:45 Baso % (Auto) 0.3 % (0-2) 06/30/19 04:45 Absolute Neuts (auto) 4.2 10^3/uL (1.7-8.2) 06/30/19 04:45 Absolute Lymphs (auto) 0.4 10^3/uL (0.5-4.7) L 06/30/19 04:45 Absolute Monos (auto) 0.3 10^3/uL (0.1-1.4) 06/30/19 04:45 Absolute Eos (auto) 0.1 10^3/uL (0.0-0.6) 06/30/19 04:45 Absolute Basos (auto) 0.0 10^3/uL (0.0-0.2) 06/30/19 04:45 Total Counted 100 06/28/19 04:58 Seg Neutrophils % 82.3 % (42-78) H 06/30/19 04:45 Seg Neuts % (Manual) 86 % (42-78) H 06/28/19 04:58 Band Neutrophils % 6 % (3-5) H 06/28/19 04:58 Lymphocytes % (Manual) 3 % (13-45) L 06/28/19 04:58 Monocytes % (Manual) 5 % (3-13) 06/28/19 04:58 Eosinophils % (Manual) 0 % (0-6) 06/28/19 04:58 Basophils % (Manual) 0 % (0-2) 06/28/19 04:58 Abs Neuts (Manual) 11.7 10^3/uL (1.7-8.2) H 06/28/19 04:58 Abs Lymphs (Manual) 0.4 10^3/uL (0.5-4.7) L 06/28/19 04:58 Abs Monocytes (Manual) 0.6 10^3/uL (0.1-1.4) 06/28/19 04:58 Absolute Eos (Manual) 0.0 10^3/uL (0.0-0.6) 06/28/19 04:58 Abs Basophils (Manual) 0.0 10^3/uL (0.0-0.2) 06/28/19 04:58 Platelet Comment ADEQUATE 06/28/19 04:58 RBC Morph Comment NORMO-CYTIC/CHROMIC 06/28/19 04:58 Sodium 137.4 mmol/L (137-145) 06/30/19 04:45 Potassium 4.2 mmol/L (3.6-5.0) D 06/30/19 04:45 Chloride 110 mmol/L (98-107) H 06/30/19 04:45 Carbon Dioxide 23 mmol/L (22-30) 06/30/19 04:45 Anion Gap 4 (5-19) L 06/30/19 04:45 BUN 4 mg/dL (7-20) L 06/30/19 04:45 Creatinine 0.52 mg/dL (0.52-1.25) 06/30/19 04:45 Est GFR ( Amer) > 60 (>60) 06/30/19 04:45 Est GFR (MDRD) Non-Af > 60 (>60) 06/30/19 04:45 Glucose 190 mg/dL (75-110) H 06/30/19 04:45 POC Glucose 173 mg/dL (70-110) H 06/30/19 11:37 Calcium 8.7 mg/dL (8.4-10.2) 06/30/19 04:45 Total Bilirubin 3.8 mg/dL (0.2-1.3) H 06/30/19 04:45 Direct Bilirubin 2.6 mg/dL (0.0-0.4) H 06/30/19 04:45 Neonat Total Bilirubin Not Reportable 06/30/19 04:45 Neonat Direct Bilirubin Not Reportable 06/30/19 04:45 Neonat Indirect Bili Not Reportable 06/30/19 04:45 AST 87 U/L (17-59) H 06/30/19 04:45 ALT 261 U/L (<50) H 06/30/19 04:45 Alkaline Phosphatase 139 U/L (38-126) H 06/30/19 04:45 Creatine Kinase 110 U/L (55-170) 06/27/19 16:38 CK-MB (CK-2) 0.88 ng/mL (<4.55) 06/27/19 16:38 Troponin I < 0.012 ng/mL 06/27/19 20:39 Total Protein 5.6 g/dL (6.3-8.2) L 06/30/19 04:45 Albumin 3.1 g/dL (3.5-5.0) L 06/30/19 04:45 Amylase 2214 U/L (30-110) H 06/27/19 16:38 Lipase 578.5 U/L (23-300) H 06/30/19 04:45 Urine Color YELLOW 06/27/19 16:55 Urine Appearance CLEAR 06/27/19 16:55 Urine pH 6.0 (5.0-9.0) 06/27/19 16:55 Ur Specific [place] 1.011 06/27/19 16:55 Urine Protein 30 mg/dL (NEGATIVE) H 06/27/19 16:55 Urine Glucose (UA) >=500 mg/dL (NEGATIVE) H 06/27/19 16:55 Urine Ketones TRACE mg/dL (NEGATIVE) H 06/27/19 16:55 Urine Blood NEGATIVE (NEGATIVE) 06/27/19 16:55 Urine Nitrite NEGATIVE (NEGATIVE) 06/27/19 16:55 Urine Bilirubin NEGATIVE (NEGATIVE) 06/27/19 16:55 Urine Urobilinogen 4.0 mg/dL (<2.0) H 06/27/19 16:55 Ur Leukocyte Esterase NEGATIVE (NEGATIVE) 06/27/19 16:55 Urine WBC (Auto) 0 /HPF 06/27/19 16:55 Urine RBC (Auto) 1 /HPF 06/27/19 16:55 Urine Mucus (Auto) RARE /LPF 06/27/19 16:55 Urine Ascorbic Acid 20 (NEGATIVE) H 06/27/19 16:55 Acetaminophen < 10 ug/mL (10-30) L 06/28/19 06:00 Hepatitis A IgM Ab Negative (Negative) 06/29/19 05:28 Hep Bs Antigen Negative (Negative) 06/29/19 05:28 Hep Bs Antibody Non Reactive (.) 06/28/19 16:40 Hep B Core Total Ab Negative (Negative) 06/29/19 05:28 Hep B Core IgM Ab Negative (Negative) 06/29/19 05:28 Hepatitis C Antibody <0.1 s/co ratio (0.0-0.9) 06/29/19 05:28 06/27/19 06/27/19 06/27/19 16:38 16:38 20:39 CK-MB (CK-2) 0.88 Troponin I 0.014 < 0.012 Impressions: Abdomen/Pelvis CT 06/27/19 00:00 IMPRESSION: Findings suggest acute, uncomplicated pancreatitis. Recommend confirmation with serum lipase levels. Wedge-shaped area of hypodensity about the anterior aspect of the spleen. While this could be related to the phase of contrast administration, a splenic infarcts could technically have this appearance. Heterogenous material within the gallbladder lumen, suspicious for sludge. Suspect hepatic steatosis. Nonobstructive right nephrolithiasis. TECHNICAL DOCUMENTATION: Quality ID # 436: Final reports with documentation of one or more dose reduction techniques (e.g., Automated exposure control, adjustment of the mA and/or kV according to patient size, use of iterative reconstruction technique) copyright 2011 [employer]- All Rights Reserved Acute Abdomen Series 06/27/19 16:26 IMPRESSION: NO RADIOGRAPHIC EVIDENCE FOR ACUTE ABDOMINAL DISEASE. Abdomen Ultrasound 06/27/19 21:28 IMPRESSION: The gallbladder is filled with sludge. Fatty liver. copyright 2011 [employer]- All Rights Reserved Plan Health Concerns: Patient needs follow-up for repeat LFTs to document resolution to normal. His hypoglycemic agents also need to be reevaluated since he was taken off the Ozempic. 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
[2019-06-30 16:24] VITALS: BP 153/86
== END 2019-06-30 16:28 | disposition home or self-care (01) | DRG 440 ==
LOC: ER 16:18 → EH 22:53 → 4S 23:55
PROVIDERS: ADMIT Internal Medicine; ATTEND Internal Medicine
DX: K85.30 Drug induced acute pancreatitis without necrosis or infection (principal); T50.995A Adverse effect of other drugs, medicaments and biological substances, initial encounter; E11.9 Type 2 diabetes mellitus without complications; E87.6 Hypokalemia; E03.9 Hypothyroidism, unspecified; K27.9 Peptic ulcer, site unspecified, unspecified as acute or chronic, without hemorrhage or perforation; I10 Essential (primary) hypertension; Z79.890 Hormone replacement therapy; Z79.84 Long term (current) use of oral hypoglycemic drugs; Z79.899 Other long term (current) drug therapy; Z98.84 Bariatric surgery status
CPT/HCPCS: 36415; 74022; 74177; 76705; 80048; 80053; 80074; 80076; 80307; 81001; 82150; 82550; 82553; 82962; 83690; 84484; 85025; 86704; 86706; 93005; 93010; 93976; 96361; 96374; 96375; 96376; 99285; C9113; J1170; J1815; J1885; J2405; J7030; J7120; J7121

== ENCOUNTER 2019-07-18 05:34 | Emergency (ER) | payer OTHER ==
[2019-07-18] MEDS ORDERED: HYDROMORPHONE HCL INJ/PF 2 MG/ML AMPULE IV ONE (06:04)
[2019-07-18] MEDS ORDERED: ONDANSETRON HCL INJ/PF 4 MG/2 ML SDV IV ONE (06:04)
--- NOTE | 2019-07-18 06:04 | ER Document Report ---
ED General - General Chief Complaint: Abdominal Pain Stated Complaint: ABDOMINAL PAIN Time Seen by Provider: 07/18/19 05:49 Primary Care Provider: FLOR MATHIAS MD [Primary Care Provider] - Follow up as needed SHAILESH NOONAN MD [NO LOCAL MD] - Follow up as needed Notes: 53-year-old male with a history of acute pancreatitis about a month ago thought related to a medication which he is no longer taking also noted to have gallbladder sludge and an incidental right kidney stone at that time presents with right flank pain severe shooting with nausea since this morning as well as suprapubic pain which occurred about an hour later. No fever no chills no jaundice. Has had urgency and frequency of urination as well but no fevers. History of gastric bypass. Not able to take NSAIDs. TRAVEL OUTSIDE OF THE [place] IN LAST 30 DAYS: No - Related Data Allergies/Adverse Reactions: No Known Allergies Allergy (Verified 06/27/19 16:27) Home Medications: METFORMIN. SYNTHROID. OMEPRAZOLE Past Medical History - General Information source: Patient - Social History Smoking Status: Never Smoker Family History: DM, Hyperlipidemia, Hypertension, Thyroid Disfunction Patient has homicidal ideation: No Endocrine Medical History: Reports: Hx Diabetes Mellitus Type 2, Hx Hypothyroidism Psychiatric Medical History: Denies: Hx Depression Past Surgical History: Reports: Hx Gastric Bypass Surgery, Hx Orthopedic Surgery - rt knee, lt shoulder Review of Systems - Review of Systems Notes: REVIEW OF SYSTEMS GEN: Denies fever, chills, weight loss ENT: Denies sore throat, nasal discharge, ear pain EYES: Denies blurry vision, eye pain, discharge CV: Denies chest pain, palpitations, edema RESP: Denies cough, shortness of breath, wheezing GI: Suprapubic pain MSK: Back pain SKIN: Denies rash, skin lesions LYMPH: Denies swollen glands/lymph nodes NEURO: Denies headache, focal weakness or numbness, dizziness PSYCH: Denies depression, suicidal or homicidal ideation PHYSICAL EXAMINATION General: No acute distress, well-nourished Head: Atraumatic, normocephalic ENT: Mouth normal, oropharynx moist, no exudates or tonsillar enlargement Eyes: Conjunctiva normal, pupils equal, lids normal Neck: No JVD, supple, no guarding CVS: Normal rate, regular rhythm, no murmurs Resp: No resp distress, equal and normal breath sounds bilaterally GI: Nondistended, soft, no tenderness to palpation, no rebound or guarding Ext: No deformities, no edema, normal range of motion in upper and lower ext Back: No CVA or midline TTP Skin: No rash, warm Lymphatic: No lymphadeopathy noted Neuro: Awake, alert. Face symmetric. GCS 15. Physical Exam - Vital signs Vitals: Temp Pulse Resp BP Pulse Ox 97.8 F 63 20 173/81 H 99 07/18/19 05:38 07/18/19 05:38 07/18/19 05:38 07/18/19 05:38 07/18/19 05:38 Course - Re-evaluation Re-evalutation: 07/18/19 06:24 Patient presents with right flank pain in the presence of a known 2 mm intrarenal stone that was found on CT less than a month ago. He has no tenderness and no fever so I think this is very likely simply to be renal colic. Will rule out pancreatitis with labs treat with Dilaudid given that he is not able to take NSAIDs at all "it up my stomach" and will check bedside ultrasound to rule out significant had a nephrosis. UA confirms microscopic hematuria without signs of infection. : Feeling better. Does have trace hydro-on ultrasound but very very mild. Will forego CT scanning discharged with Flomax Zofran and p.o. oxycodone and referred to urologyhe is already seen someone at [facility] in [place]. I have discussed with the patient there likely diagnosis, aftercare plan, follow-up plans and my usual and customary return precautions. They verbalized understanding of this. 07/18/19 08:59 Patient's labs show a slightly elevated lipase, but his clinical picture is not consistent with finger otitis. He does not have red quadrant pain. I did tell him he should see a surgeon regarding his gallbladder sludge as this may have been the cause for his original episode pancreatitis, but for now we will treat him with narcotics and Flomax for kidney stone refer him to Dr. Noonan. Insert discharge - Vital Signs Vital signs: Temp Pulse Resp BP Pulse Ox 98.1 F 83 16 129/64 H 96 07/18/19 07:40 07/18/19 07:40 07/18/19 07:40 07/18/19 07:40 07/18/19 07:40 - Laboratory Result Diagrams: 07/18/19 06:25 07/18/19 06:25 Laboratory results interpreted by me: 07/18/19 07/18/19 07/18/19 05:43 06:25 06:25 Lymph % (Auto) 9.9 L Seg Neutrophils % 80.6 H Sodium 135.4 L Glucose 270 H ALT 53 H Lipase 728.2 H Urine Protein 30 H Urine Glucose (UA) >=500 H Urine Ketones TRACE H Urine Blood MODERATE H Urine Ascorbic Acid 40 H Procedures - Ultrasound/Bedside Ultrasound/Bedside Ultrasound: Other - Kidneys limited bilateral: Assess for hydronephrosis Left kidney: Normal Right kidney: Trace hydronephrosis without fluid collection Discharge - Discharge Clinical Impression: Renal colic on right side Condition: Good Disposition: HOME, SELF-CARE Instructions: Kidney Stone ([facility]) Prescriptions: Tamsulosin HCl [Flomax] 0.4 mg PO QHS #7 cap.er.24h Ondansetron [Zofran Odt 4 mg Tablet] 1 - 2 tab PO Q4HP PRN #10 tab.rapdis PRN Reason: Oxycodone HCl/Acetaminophen [Percocet 5-325 mg Tablet] 1 - 2 tab PO Q4H PRN #15 tablet PRN Reason: Referrals: FLOR MATHIAS MD [Primary Care Provider] - Follow up as needed SHAILESH NOONAN MD [NO LOCAL MD] - Follow up as needed
[2019-07-18 06:06] LABS: APPEARANCE,URINE SLIGHTLY-CLOUDY; BILIRUBIN,URINE NEGATIVE (NEGATIVE); CALCIUM OXALATE CRYSTALS,URINE MODERATE /HPF; COLOR,URINE YELLOW; GLUCOSE, URINE >=500 mg/dL (NEGATIVE); KETONES,URINE TRACE mg/dL (NEGATIVE); LEUKOCYTE ESTERASE,URINE NEGATIVE (NEGATIVE); NITRITE,URINE NEGATIVE (NEGATIVE); PROTEIN,URINE 30 mg/dL (NEGATIVE); URINE SPECIFIC GRAVITY 1.033; UROBILINOGEN,URINE NEGATIVE mg/dL (<2.0)
[2019-07-18 07:04] LABS: ABSOLUTE EOSINOPHILS # (AUTO) 0.2 10^3/uL (0.0-0.6); ABSOLUTE LYMPHOCYTES (AUTO) 0.9 10^3/uL (0.5-4.7); ABSOLUTE MONOCYTES (AUTO) 0.6 10^3/uL (0.1-1.4); ABSOLUTE NEUT (AUTO) 7.2 10^3/uL (1.7-8.2); BASOPHILS % (AUTO) 0.4 % (0-2); EOSINOPHILS % (AUTO) 2.3 % (0-6); HEMATOCRIT 44.3 % (37.9-51.0); HEMOGLOBIN 15.1 g/dL (13.5-17.0); LYMPHOCYTES % (AUTO) 9.9 % (13-45); MEAN CORPUSCULAR HGB CONC 34.1 g/dL (32.0-36.0); MEAN CORPUSCULAR VOLUME 88 fl (80-97); MONOCYTES % (AUTO) 6.8 % (3-13); PLATELET COUNT 279 10^3/uL (150-450); RED BLOOD COUNT 5.03 10^6/uL (4.35-5.55); RED CELL DISTRIBUTION WIDTH 13.5 % (11.5-14.0); SEGMENTED NEUTROPHILS % (AUTO) 80.6 % (42-78); TOTAL CELLS COUNTED % (AUTO) 100 %; WHITE BLOOD COUNT 8.9 10^3/uL (4.0-10.5)
[2019-07-18 07:26] LABS: ALBUMIN 4.2 g/dL (3.5-5.0); ALKALINE PHOSPHATASE 93 U/L (38-126); ANION GAP 9 (5-19); ASPARTATE AMINO TRANSFERASE 33 U/L (17-59); BILIRUBIN,DIRECT 0.1 mg/dL (0.0-0.4); BILIRUBIN,TOTAL 0.9 mg/dL (0.2-1.3); BLOOD UREA NITROGEN 16 mg/dL (7-20); CALCIUM 9.3 mg/dL (8.4-10.2); CARBON DIOXIDE 26 mmol/L (22-30); CHLORIDE 100 mmol/L (98-107); GLUCOSE 270 mg/dL (75-110); POTASSIUM 4.6 mmol/L (3.6-5.0); TOTAL PROTEIN 7.2 g/dL (6.3-8.2)
[2019-07-18 07:41] VITALS: BP 129/64
== END 2019-07-18 07:41 | disposition home or self-care (01) ==
LOC: ER 05:34
DX: N13.2 Hydronephrosis with renal and ureteral calculous obstruction (principal); R31.29 Other microscopic hematuria; K82.8 Other specified diseases of gallbladder; R39.15 Urgency of urination; R35.0 Frequency of micturition; E11.9 Type 2 diabetes mellitus without complications; E03.9 Hypothyroidism, unspecified; Z98.84 Bariatric surgery status; Z87.19 Personal history of other diseases of the digestive system; Z87.442 Personal history of urinary calculi; Z79.84 Long term (current) use of oral hypoglycemic drugs; Z79.899 Other long term (current) drug therapy
CPT/HCPCS: 99284; 96374; 96375; 36415; 83690; 85025; 80053; 81001; J1170; J2405

== ENCOUNTER 2020-03-10 10:56 | Emergency (ER) | payer OTHER ==
[2020-03-10] MEDS ORDERED: ONDANSETRON HCL INJ/PF 4 MG/2 ML SDV IV ONE (11:18)
--- NOTE | 2020-03-10 11:20 | ER Document Report ---
ED Medical Screen (RME) - General Chief Complaint: Abdominal Pain Stated Complaint: ABDOMINAL PAIN,BACK PAIN,NAUSEA Time Seen by Provider: 03/10/20 11:14 Primary Care Provider: FLOR MATHIAS MD [Primary Care Provider] - Follow up as needed Information source: Patient Notes: Patient presents complaining sudden onset of epigastric abdominal pain. Patient states pain radiates around his abdomen and to his upper back. Patient states he has had some pain into the chest as well. Patient reports nausea with shortness of breath. Patient denies any cough. Patient states he had a history of pancreatitis after taking the medication in the past. States that his pain feels similar to when he had pancreatitis previously. Patient otherwise has a history of diabetes and hypothyroidism and gastric bypass surgery. States he did take a Percocet at home that helped his symptoms modestly. I have greeted and performed a rapid initial assessment of this patient. A comprehensive ED assessment and evaluation of the patient, analysis of test results and completion of the medical decision making process will be conducted by additional ED providers. TRAVEL OUTSIDE OF THE [place] IN LAST 30 DAYS: No - Related Data Allergies/Adverse Reactions: No Known Allergies Allergy (Verified 06/27/19 16:27) Past Medical History Endocrine Medical History: Reports: Hx Diabetes Mellitus Type 2, Hx Hypothyroidism Psychiatric Medical History: Denies: Hx Depression Past Surgical History: Reports: Hx Abdominal Surgery, Hx Gastric Bypass Surgery, Hx Orthopedic Surgery - rt knee, lt shoulder Physical Exam - Vital signs Vitals: Temp Pulse Resp BP Pulse Ox 98.6 F 97 16 128/65 H 98 03/10/20 11:01 03/10/20 11:01 03/10/20 11:01 03/10/20 11:01 03/10/20 11:01 - Abdominal Tenderness: Tender - Epigastric Course - Vital Signs Vital signs: Temp Pulse Resp BP Pulse Ox 98.6 F 97 16 128/65 H 98 03/10/20 11:01 03/10/20 11:01 03/10/20 11:01 03/10/20 11:01 03/10/20 11:01 Doctor's Discharge - Discharge Referrals: FLOR MATHIAS MD [Primary Care Provider] - Follow up as needed
--- NOTE | 2020-03-10 12:04 | EKG REPORT ---
SEVERITY:- OTHERWISE NORMAL ECG - SINUS TACHYCARDIA : Confirmed by: Miky Sarmiento MD 10-Mar-2020 12:04:07
--- NOTE | 2020-03-10 12:06 | RADIOLOGY REPORT (SQ) ---
EXAM DESCRIPTION: CHEST SINGLE VIEW IMAGES COMPLETED DATE/TIME: 03/10/2020 11:51 am REASON FOR STUDY: epig pain COMPARISON: AP view of the chest from 04/25/2010. EXAM PARAMETERS: NUMBER OF VIEWS: One view. TECHNIQUE: An AP view of the chest was obtained. RADIATION DOSE: NA LIMITATIONS: None. FINDINGS: LUNGS AND PLEURA: No consolidation, pleural effusion or pneumothorax. MEDIASTINUM AND HILAR STRUCTURES: No mediastinal or hilar contour abnormality. HEART AND VASCULAR STRUCTURES: The cardiac silhouette and pulmonary vasculature are within normal caldwell its. BONES: No acute findings. HARDWARE: None in the chest. OTHER: No other finding. IMPRESSION: No acute cardiopulmonary process. TECHNICAL DOCUMENTATION: JOB ID: [id number] 2010 [employer]- All Rights Reserved Reading location - IP/workstation name: [email or web address]
[2020-03-10 12:10] LABS: ABSOLUTE LYMPHOCYTES (AUTO) 0.3 10^3/uL (0.5-4.7); ABSOLUTE MONOCYTES (AUTO) 0.1 10^3/uL (0.1-1.4); ABSOLUTE NEUT (AUTO) 4.2 10^3/uL (1.7-8.2); BASOPHILS % (AUTO) 0.1 % (0-2); EOSINOPHILS % (AUTO) 0.2 % (0-6); HEMATOCRIT 42.9 % (37.9-51.0); HEMOGLOBIN 14.8 g/dL (13.5-17.0); LYMPHOCYTES % (AUTO) 5.9 % (13-45); MEAN CORPUSCULAR HEMOGLOBIN 29.7 pg (27.0-33.4); MEAN CORPUSCULAR HGB CONC 34.4 g/dL (32.0-36.0); MEAN CORPUSCULAR VOLUME 86 fl (80-97); PLATELET COUNT 191 10^3/uL (150-450); RED BLOOD COUNT 4.98 10^6/uL (4.35-5.55); RED CELL DISTRIBUTION WIDTH 13.8 % (11.5-14.0); SEGMENTED NEUTROPHILS % (AUTO) 91.8 % (42-78); TOTAL CELLS COUNTED % (AUTO) 100 %; WHITE BLOOD COUNT 4.6 10^3/uL (4.0-10.5)
[2020-03-10 12:22] LABS: ALBUMIN 4.4 g/dL (3.5-5.0); ALKALINE PHOSPHATASE 153 U/L (38-126); ANION GAP 11 (5-19); ASPARTATE AMINO TRANSFERASE 579 U/L (17-59); BILIRUBIN,TOTAL 2.7 mg/dL (0.2-1.3); BLOOD UREA NITROGEN 16 mg/dL (7-20); CALCIUM 9.7 mg/dL (8.4-10.2); CARBON DIOXIDE 25 mmol/L (22-30); CHLORIDE 107 mmol/L (98-107); GLUCOSE 208 mg/dL (75-110); POTASSIUM 4.2 mmol/L (3.6-5.0); TOTAL PROTEIN 7.2 g/dL (6.3-8.2)
[2020-03-10 14:02] LABS: AMYLASE 67 U/L (30-110)
[2020-03-10 14:03] LABS: ALCOHOL < 10 mg/dL (NONE DETECTED)
[2020-03-10] MEDS ORDERED: MORPHINE SULFATE 10 MG/ML INJ IV ONE (14:05)
--- NOTE | 2020-03-10 14:11 | RADIOLOGY REPORT (SQ) ---
EXAM DESCRIPTION: CT ABD/PELVIS WITH IV ONLY IMAGES COMPLETED DATE/TIME: 03/10/2020 1:55 pm REASON FOR STUDY: Epigastric pain, high LFT's COMPARISON: CT of the abdomen and pelvis from 06/27/2019. TECHNIQUE: CT scan of the abdomen and pelvis performed using helical scanning technique with dynamic intravenous contrast injection. No oral contrast. Images reviewed with lung, soft tissue, and bone windows. Reconstructed coronal and sagittal MPR images reviewed. Delayed images for evaluation of the urinary system also acquired. All images stored on PACS. All CT scanners at this facility use dose modulation, iterative reconstruction, and/or weight based d osing when appropriate to reduce radiation dose to as low as reasonably achievable (ALARA). [facility]: Dose Right [facility]: CareDose [facility]: Dose Right [facility]: Teradose 4D [facility]: Talkable CONTRAST TYPE AND DOSE: Contrast/concentration: Isovue 350.00 mmol/ml; Total Contrast Delivered: 99. 0 ml; Total Saline Delivered: 72.0 ml RENAL FUNCTION: GFR > 60. RADIATION DOSE: CT Rad equipment meets quality standard of care and radiation dose reduction techniq ues were employed. CTDIvol: 15.1 - 18.4 mGy. DLP: 2041 mGy-cm. LIMITATIONS: None. FINDINGS: LOWER CHEST: No acute abnormality. LIVER: The morphology of the liver is noncirrhotic. The portal veins are patent. There is no hepati c mass. SPLEEN: No splenomegaly or splenic mass. PANCREAS: No acute gross abnormality of the pancreas. GALLBLADDER: Cholelithiasis. There is no pericholecystic inflammation. There is no dilatation of th e biliary ducts. ADRENAL GLANDS: No mass or asymmetry. RIGHT KIDNEY AND URETER: No solid mass, hydronephrosis, nephrolithiasis, hydroureter or ureterolithia sis. LEFT KIDNEY AND URETER: No solid mass, hydronephrosis, nephrolithiasis, hydroureter or ureterolithias is. AORTA AND VESSELS: No aneurysm or dissection of the abdominal aorta. RETROPERITONEUM: No retroperitoneal adenopathy, hemorrhage or mass. BOWEL AND PERITONEAL CAVITY: Colonic diverticulosis without diverticulitis. There is no bowel obstru ction, bowel wall thickening or pericolonic/ perienteric inflammation. There is no mesenteric adenop athy, free intraperitoneal fluid or mesenteric/ omental inflammation. APPENDIX: Normal. PELVIS: No acute abnormality. ABDOMINAL WALL: No mass or hernia. BONES: No fracture or osseous lesion. OTHER: No other findings. IMPRESSION: 1. No acute intra-abdominal abnormality. 2. Cholelithiasis. 3. Colonic diverticulosis. TECHNICAL DOCUMENTATION: JOB ID: [id number] Quality ID # [id number]: Final reports with documentation of one or more dose reduction techniques (e.g., Au tomated exposure control, adjustment of the mA and/or kV according to patient size, use of iterative reconstruction technique) 2010 [employer]- All Rights Reserved Reading location - IP/workstation name: [email or web address]
--- NOTE | 2020-03-10 14:47 | RADIOLOGY REPORT (SQ) ---
EXAM DESCRIPTION: U/S ABDOMEN LIMITED W/O DOP IMAGES COMPLETED DATE/TIME: 03/10/2020 2:22 pm REASON FOR STUDY: RUQ/epigastric pain, high LFT's COMPARISON: CT of the abdomen and pelvis with contrast from 03/10/2020. TECHNIQUE: Dynamic and static grayscale images acquired of the abdomen and recorded on PACS. Additio nal selected color Doppler and spectral images recorded. LIMITATIONS: None. FINDINGS: PANCREAS: The visualized portions of the pancreas appear normal. LIVER: The echogenicity of hepatic parenchyma is increased and there is associated attenuation of the far field. LIVER VASCULATURE: Normal directional flow of the main portal vein and hepatic veins. GALLBLADDER: The gallbladder is distended and its wall is thickened measuring 6 mm in outer diameter. There is a combination of sludge and calculi within the gallbladder lumen. There is no pericholecy stic fluid. ULTRASOUND-DETECTED FLOR'S SIGN: Negative. INTRAHEPATIC DUCTS AND COMMON DUCT: The common bile duct measures 5 mm in outer diameter. There is n o dilatation of the intrahepatic ducts. INFERIOR VENA CAVA: Not assessed. AORTA: No aneurysm. RIGHT KIDNEY: The right kidney measures 13 cm in length. There is no hydronephrosis. PERITONEAL AND RIGHT PLEURAL SPACE: No ascites or effusions. OTHER: No other findings. IMPRESSION: Distended thickened gallbladder that is filled with sludge and calculi. The sonographic Flor sign is negative and there is no pericholecystic inflammation. Overall these findings are eq uivocal for an acute cholecystitis and based on clinical concern correlation with a HIDA is recommend ed for definite diagnosis. TECHNICAL DOCUMENTATION: JOB ID: [id number] 2010 [employer]- All Rights Reserved Reading location - IP/workstation name: [email or web address]
[2020-03-10] MEDS ORDERED: HYDROMORPHONE HCL INJ/PF 2 MG/ML AMPULE IV ONE (15:52)
[2020-03-10] MEDS ORDERED: NORMAL SALINE 1000 ML 1,000 ML IV ONE (18:10)
--- NOTE | 2020-03-10 19:08 | RADIOLOGY REPORT (SQ) ---
EXAM DESCRIPTION: MRI ABDOMEN WITHOUT IMAGES COMPLETED DATE/TIME: 03/10/2020 5:34 pm REASON FOR STUDY: RUQ pain, subacute abigail cystitis. Patient presented with right upper quadrant ep igastric pain and high LFTs. Chronic abdominal pain worsening over the past 1 day. Nausea. History of gastric bypass and pancreatitis. COMPARISON: CT abdomen and pelvis same date. Abdominal ultrasound same date. Abdominal ultrasound 06/27/2019. CT abdomen and pelvis 06/27/2019. TECHNIQUE: Noncontrast MRCP. Source and MIP images reviewed. LIMITATIONS: None. FINDINGS: GALLBLADDER: The gallbladder is moderately distended with numerous gallstones in debris wi thin the gallbladder lumen. No gallbladder wall thickening or pericholecystic fluid. No surrounding inflammatory change. INTRAHEPATIC DUCTS: Nondilated. EXTRAHEPATIC DUCTS: The extrahepatic biliary ducts have normal caliber measuring maximum 6 mm diamete r. Within the distal common bile duct, there is a focal 4 mm filling defect consistent with choledoc holithiasis. Within the cystic duct, there is a focal 1 mm filling defect also suggestive of intralu robbie calculus. PANCREAS: Generally homogeneous, no gross mass or significant signal alteration. No surrounding infl ammatory changes or fluid. Pancreatic duct is normal. LIVER, SPLEEN, KIDNEYS, ADRENALS: There is moderate hepatic steatosis. No focal hepatic mass. Splee n has normal size. No adrenal mass kidneys have normal size and position. No solid or cystic renal mass. No hydronephrosis or perinephric fluid. . VESSELS: No evidence of aneurysm. Grossly appropriate flow voids in the major vascular structures. LUNG BASES: Grossly clear. OTHER: Normal bone marrow signal. IMPRESSION: 1. Cholelithiasis with choledocholithiasis with a 4 mm stone in the distal common bile duct. Common bile duct is not dilated. 2. There is also a 1 mm calculus in the cystic duct. Moderate distention of the gallbladder with cho lelithiasis. No gallbladder wall thickening or pericholecystic fluid. 3. Moderate hepatic steatosis. TECHNICAL DOCUMENTATION: JOB ID: [id number] 2010 [employer]- All Rights Reserved Reading location - IP/workstation name: [email or web address]
--- NOTE | 2020-03-10 19:38 | ER Document Report ---
ED General - General Mode of Arrival: Ambulatory Information source: Patient TRAVEL OUTSIDE OF THE [place] IN LAST 30 DAYS: No <JOLENE OROSCO - Last Filed: 03/10/20 20:47> <MARCIAAMADOU IV - Last Filed: 03/10/20 21:33> - General Chief Complaint: Abdominal Pain Stated Complaint: ABDOMINAL PAIN,BACK PAIN,NAUSEA Time Seen by Provider: 03/10/20 11:14 Primary Care Provider: FLOR MATHIAS MD [Primary Care Provider] - Follow up as needed - HPI Notes: Sudden onset of sharp epigastric and right upper quadrant abdominal pain radiating around to the right back that started this morning as described in the rapid medical examination note. Denies fever chills. Has some nausea. In ex ploring his diet he ate keating for the first time in almost a year. That seems to have been a triggering event. He had an episode of pancreatitis some months ago secondary to a new diabetes medication he had started. That episode required hospitalization, and during that hospitalization he was found to have sludge in his gallbladder on ultrasound. He does not recall ever being told that he had stones. Since that time he has done well until this pain started. 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 He has done very well since that surgery until this problem has arisen. (JOLENE OROSCO) - Related Data Allergies/Adverse Reactions: No Known Allergies Allergy (Verified 06/27/19 16:27) Past Medical History - General Information source: Patient - Social History Smoking Status: Never Smoker Family History: DM, Hyperlipidemia, Hypertension, Thyroid Disfunction - Medical History Medical History: Other Endocrine Medical History: Reports: Hx Diabetes Mellitus Type 2, Hx Hypothyroidism Psychiatric Medical History: Denies: Hx Depression Past Surgical History: Reports: Hx Abdominal Surgery, Hx Gastric Bypass Surgery, Hx Orthopedic Surgery - rt knee, lt shoulder <JOLENE OROSCO - Last Filed: 03/10/20 20:47> - Medical History Notes: Medical history as documented in electronic health record is reviewed. (JOLENE OROSCO) Review of Systems <JOLENE OROSCO - Last Filed: 03/10/20 20:47> - Review of Systems Notes: All other systems were reviewed and are negative or noncontributory except as noted in the history of present illness. (JOLENE OROSCO) Physical Exam <JOLENE OROSCO - Last Filed: 03/10/20 20:47> - Vital signs Vitals: Temp Pulse Resp BP Pulse Ox 98.6 F 97 16 128/65 H 98 03/10/20 11:01 03/10/20 11:01 03/10/20 11:01 03/10/20 11:01 03/10/20 11:01 - Notes Notes: General: This a well-developed well-nourished male who appears somewhat uncomfortable but in no acute physiologic distress. Vital signs and nursing chief complaint are reviewed. Neck: Supple trachea midline no adenopathy. Lungs: Clear to auscultation all alvares. Back: Normal curvatures no CVA tenderness. Heart: Regular rate and rhythm with a 2/6 systolic ejection murmur heard across the precordium. Abdomen: Nondistended, soft, hypoactive but present bowel sounds. Positive epigastric and right upper quadrant mild diffuse direct tenderness. No guarding. No masses. No organomegaly. No rebound. Extremities: Without clubbing cyanosis or edema. Skin: Warm moist good turgor no rashes. Neuro: No focal neurologic deficits noted. (JOLENE OROSCO) Course - Laboratory Results Result Diagrams: 03/10/20 11:35 03/10/20 11:35 Critical Laboratory Results Reviewed: No Critical Results - Radiology Results Critical Radiology Results Reviewed: Yes - EKG Interpretation by Me EKG shows normal: Sinus rhythm, Fisher, Intervals, QRS Complexes, ST-T Waves <JOLENE OROSCO - Last Filed: 03/10/20 20:47> - Laboratory Results Result Diagrams: 03/10/20 11:35 03/10/20 11:35 <AMADOU KUMAR IV - Last Filed: 03/10/20 21:33> - Re-evaluation Re-evalutation: 03/10/20 19:49 Patient required a dose of antiemetics and 2 small doses of analgesics to control his pain. After that he remained quite comfortable throughout his ED stay. I discussed the case with Dr. Rachel, our general surgeon on-call. He told me that he has a bariatric surgery background and described in some detail what he thought this patient would require. In short, if the patient has stones in his bile ducts he will require a transabdominal ERCP followed by cholecystectomy, which we cannot do here. The patient's MRCP showed a 4 mm stone in the common bile duct and a 1 mm stone in the cystic duct. Because of these findings I elected to call [facility] to discuss possible transfer and/or outpatient follow-up. 03/10/20 20:47 Care was turned over to Dr. Kumar at 2047 hrs. I informed the patient that we were waiting to hear from violent. Patient fully understands the plan and is in agreement with it. (JOLENE OROSCO) 03/10/20 21:06 Patient was endorsed to this by Dr. Orosco at 2045 hrs. [facility] called back at 2105 hrs., this MD spoke to the coordinator at [facility]. She states that she spoke to Dr. Varun Garza with [facility] in [place]. Apparently the patient has had procedures done with this practice in the past. Dr. Garza stated that the patient could show up at his practice on 03/13/2020. 03/10/20 21:18 Plan for follow-up discussed with patient. Patient is comfortable with this plan. Patient was instructed to avoid high fat foods and to return if symptoms worsen between now and Friday morning. All questions were answered prior to discharge. Emergency signs and symptoms, reasons to return to the emergency department discussed with patient. 03/10/20 21:33 This MD had images for patient power shared with [facility] and is also discharging the patient with a copy of the images on CD. (AMADOU KUMAR IV) - Vital Signs Vital signs: Temp Pulse Resp BP Pulse Ox 98.6 F 97 16 128/65 H 98 03/10/20 11:01 03/10/20 11:01 03/10/20 11:01 03/10/20 11:01 03/10/20 11:01 - Laboratory Results Laboratory Results Interpreted: 03/10/20 03/10/20 11:35 11:35 Lymph % (Auto) 5.9 L [place] % (Auto) 2.0 L Absolute Lymphs (auto) 0.3 L Seg Neutrophils % 91.8 H Glucose 208 H Total Bilirubin 2.7 H Direct Bilirubin 2.0 H AST 579 H ALT 311 H Alkaline Phosphatase 153 H Lipase 373.1 H - Radiology Results Radiology Results Interpreted: 03/10/20 19:49 Chest X-Ray 03/10/20 11:18 IMPRESSION: No acute cardiopulmonary process. Abdomen Ultrasound 03/10/20 13:31 IMPRESSION: Distended thickened gallbladder that is filled with sludge and calculi. The sonographic Flor sign is negative and there is no pericholecystic inflammation. Overall these findings are equivocal for an acute cholecystitis and based on clinical concern correlation with a HIDA is recommended for definite diagnosis. Abdomen/Pelvis CT 03/10/20 13:32 IMPRESSION: 1. No acute intra-abdominal abnormality. 2. Cholelithiasis. 3. Colonic diverticulosis. Abdomen MRI 03/10/20 15:48 IMPRESSION: 1. Cholelithiasis with choledocholithiasis with a 4 mm stone in the distal common bile duct. Common bile duct is not dilated. 2. There is also a 1 mm calculus in the cystic duct. Moderate distention of the gallbladder with cholelithiasis. No gallbladder wall thickening or pericholecystic fluid. 3. Moderate hepatic steatosis. (JOLENE OROSCO) Discharge <JOLENE OROSCO - Last Filed: 03/10/20 20:47> <AMADOU KUMAR IV - Last Filed: 03/10/20 21:33> - Discharge Clinical Impression: Choledocholithiasis Condition: Stable Disposition: HOME, SELF-CARE Additional Instructions: Return to the Emergency Department without delay if any worse. Be certain to be at Dr. Garza's office, [facility], [address] [place] [address] at 9 AM on Friday. Phone number is [phone]. HOME CARE INSTRUCTIONS & INFORMATION: Thank you for choosing us for your medical needs. We hope you're satisfied with the care you received. After you leave, you must properly care for your problem and, at the same time, observe its progress. Any condition can change. Some illnesses can change rapidly over hours or days. If your condition worsens, return to the Emergency Department or see your physician promptly. ABOUT YOUR X-RAYS AND EKG'S: If you had an EKG or X-rays taken, they have been read by the Emergency Physician. The X-rays and EKG's will also be read by a Radiologist or Associate Professor Plant Pathology within 24 hours. If discrepancies are noted, you will be notified by telephone. Please be certain the ED has a correct telephone number & address where you can be reached. Also, realize that some fractures or abnormalities do not show up on initial X-rays. If your symptoms continue, see your physician. ABOUT YOUR LABORATORY TEST: If you had laboratory tests, the results have been reviewed by the Emergency Physician. Some test results (for example cultures) may not be available for several days. You will be contacted if any test result shows you need additional treatment. Please be certain the ED has a correct telephone number and address where you can be reached. ABOUT YOUR MEDICATIONS: You will receive instructions on how to take your medicine on the prescription label you receive. Additional information may be provided by the Pharmacy. If you have questions afterwards, call the ED for clarification or further instructions. Some prescribed medications may cause drowsiness. Do not perform tasks such as driving a car or operating machinery without consulting your Pharmacist. If you feel you need a refill of pain medication, your condition will need re-evaluation. Please do not call for a refill of any medication. ABOUT YOUR SIGNATURE: Signature of this document acknowledges to followin. Understanding that you received emergency treatment and that you may be released before al medical problems are known or treated. Please be certain the ED has a correct phone number & address where you can be reached. 2. Acknowledgement that you will arrange for follow-up care as recommended. 3. Authorization for the Emergency Physician to provide information to your follow-up Physician in order to maximize your care. AT ANY TIME, IF YOUR SYMPTOMS CHANGE SIGNIFICANTLY OR WORSEN OR YOU DEVELOP NEW SYMPTOMS, RETURN TO THE EMERGENCY DEPARTMENT IMMEDIATELY FOR RE-EVALUATION. OUR GOAL IS TO PROVIDE EXCELLENT MEDICAL CARE! WE HOPE THAT WE HAVE MET YOUR EXPECTATIONS DURING YOUR EMERGENCY DEPARTMENT VISIT AND THAT YOU FEEL YOU HAVE RECEIVED EXCELLENT CARE! Gallbladder Disease Your evaluation shows evidence of gallbladder disease. The gallbladder is a pouch under the liver which stores bile. Stones, infection, or irritation of the gallbladder cause attacks of pain. Certain foods -- fats in particular -- may provoke attacks. The usual treatment for gallbladder disease is surgical removal of the gallbladder -- called a cholecystectomy. You will be referred to a physician qualified to advise you on the best treatment for your problem. Take clear liquids only until you are painfree. After that, you should stay on a low-fat diet, with frequent SMALL meals. Call the doctor or return at once if you develop severe pain, repeated vomiting, fever, or jaundice (a yellow color in the skin and whites of the eyes). Prescriptions: Hydrocodone/Acetaminophen [[place] 5-325 mg Tablet] 1 tab PO Q6HP PRN #12 tablet PRN Reason: pain Ondansetron [Zofran Odt 4 mg Tablet] 1 - 2 tab PO Q8HP PRN #12 tab.rapdis PRN Reason: Referrals: FLOR MATHIAS MD [Primary Care Provider] - Follow up as needed
[2020-03-10] MEDS ORDERED: ONDANSETRON ODT 4 MG TAB (6 TAB/ER DISP) PO PRN (21:11)
[2020-03-10] MEDS ORDERED: HYDROCODONE/ACETAMINOPHEN 5-325 MG (6 TAB/ER DISP) PO PRN (21:11)
[2020-03-10 21:59] VITALS: BP 126/69
== END 2020-03-10 21:59 | disposition home or self-care (01) ==
LOC: ER 10:56
DX: K80.70 Calculus of gallbladder and bile duct without cholecystitis without obstruction (principal); K76.0 Fatty (change of) liver, not elsewhere classified; K57.30 Diverticulosis of large intestine without perforation or abscess without bleeding; R10.11 Right upper quadrant pain; R10.816 Epigastric abdominal tenderness; R10.811 Right upper quadrant abdominal tenderness; R11.0 Nausea; E11.9 Type 2 diabetes mellitus without complications; Z98.84 Bariatric surgery status
CPT/HCPCS: 93005; 99285; 96361; 96374; 96375; 36415; 80307; 82150; 83690; 85025; 80053; 84484; 74181; 71045; 76705; 74177; 93010; J1170; J2405; J7030